=== PATIENT | male | born 1950 | race Hispanic/Latino ===

== ENCOUNTER → 2018-04-08 | Outpatient (CLI) | payer OTHER | END | disposition home or self-care (01) | LOC: SHCH 07:53 | PROVIDERS: ATTEND Internal Medicine Cardiovascular Disease | DX: I71.4 Abdominal aortic aneurysm, without rupture (principal) | CPT/HCPCS: 93978 ==

== ENCOUNTER → 2021-04-22 | Outpatient (CLI) | payer OTHER ==
[~2021-04-22] MED LIST: IOHEXOL 350 MG/ML 100ML INFUS..BTL IV ONE
== END | disposition home or self-care (01) ==
LOC: OIH 09:36
PROVIDERS: ATTEND Internal Medicine Cardiovascular Disease
DX: I71.4 Abdominal aortic aneurysm, without rupture (principal); Z86.79 Personal history of other diseases of the circulatory system; Z95.5 Presence of coronary angioplasty implant and graft
CPT/HCPCS: 74174; Q9967

== ENCOUNTER → 2021-05-05 | Outpatient (CLI) | payer OTHER | END | disposition home or self-care (01) | LOC: SHCH 15:52 | PROVIDERS: ATTEND Internal Medicine Cardiovascular Disease | DX: I34.0 Nonrheumatic mitral (valve) insufficiency (principal); I10 Essential (primary) hypertension; E78.5 Hyperlipidemia, unspecified; E11.9 Type 2 diabetes mellitus without complications; R55 Syncope and collapse | CPT/HCPCS: 93306; 93356 ==

== ENCOUNTER 2021-10-08 09:00 | Inpatient (IN) | payer OTHER ==
[~2021-10-08] VITALS: Ht 172.7 cm; Wt 85.7 kg
[2021-10-08 10:13] LABS: BASOPHILS % (AUTO) 0.6 % (0.0-5.0); EOSINOPHILS % (AUTO) 3.6 % (0.0-8.0); HEMATOCRIT 44.3 % (42-54); LYMPHOCYTES % (AUTO) 28.8 % (21.0-51.0); MEAN CORPUSCULAR HEMOGLOBIN 28.4 pg (27.0-33.0); MEAN CORPUSCULAR HGB CONC 31.6 g/dL (32.0-36.0); MEAN CORPUSCULAR VOLUME 89.9 fL (79-99); MONOCYTES % (AUTO) 12.2 % (3.0-13.0); NEUTROPHILS % (AUTO) 54.6 % (40.0-77.0); PLATELET COUNT (AUTO) 203 K/uL (130-400); RED BLOOD CELL COUNT(AUTO) 4.93 MIL/uL (4.50-6.20); RED CELL DISTRIBUTION WIDTH 14.6 % (11.0-15.5); WHITE BLOOD COUNT (AUTO) 5.3 K/uL (4.8-10.8)
[2021-10-08 10:15] LABS: APPEARANCE,URINE Clear (CLEAR); BILIRUBIN,URINE Negative (NEGATIVE); COLOR,URINE Yellow (YELLOW); GLUCOSE, URINE (UA) Negative (NEGATIVE); KETONES,URINE Negative (NEGATIVE); LEUKOCYTE ESTERASE ,URINE Trace (NEGATIVE); NITRATE,URINE Negative (NEGATIVE); OCCULT BLOOD,URINE Negative (NEGATIVE); PH,URINE 6.5 (5.0-8.0); PROTEIN,URINE Negative (NEGATIVE)
[2021-10-08 10:21] LABS: BACTERIA,URINE Rare /HPF (None Seen); RBC,URINE 0-1 /HPF (0-1); SQUAMOUS EPITHELIAL CELL,UR Rare /HPF (0-2); WBC,URINE 0-1 /HPF (0-1)
[2021-10-08 10:26] LABS: CREATININE 0.6 mg/dL (0.5-1.5); POTASSIUM 4.1 mmol/L (3.5-5.1)
[2021-10-08 10:38] LABS: INR 1.06 (0.85-1.15); PROTHROMBIN TIME 11.5 SEC (9.6-11.6)
[2021-10-08 10:40] LABS: PARTIAL THROMBOPLASTIN TIME 25.4 SEC (26.3-35.5)
[2021-10-08] MEDS ORDERED: 0.9%NACL 1000ML 1,000 ML IV SCH (17:30)
[2021-10-09 10:58] VITALS: BP 135/70
[2021-10-09] MEDS ORDERED: GUAI400T94 PO (11:55)
[2021-10-09] MEDS ORDERED: FLUT16H NASAL (11:55)
[2021-10-09] MEDS ORDERED: CETI10TA57 PO (11:55)
[2021-10-09] MEDS ORDERED: LATA7.5D OU (11:55)
[2021-10-09] MEDS ORDERED: TIOT4MIS5 IH (11:55)
[2021-10-09] MEDS ORDERED: FLUT1BLS8 IH (11:55)
[2021-10-09] MEDS ORDERED: METF-446 PO (11:55)
[2021-10-09] MEDS ORDERED: DOCU100T PO (11:55)
[2021-10-09] MEDS ORDERED: BRIM10DR16 OU (11:55)
[2021-10-09] MEDS ORDERED: ROSU20TA31 PO (11:55)
[2021-10-10] VITALS (35 sets, daily range): BP systolic 119–161; BP diastolic 51–77
[2021-10-10] MEDS ORDERED: NITROGLYCERIN 50MG VIAL IV ONE (06:50)
[2021-10-10] MEDS ORDERED: HEPARIN 10,000 UNIT/10ML (1,000 UNIT/ML) VIAL ONE (06:50)
[2021-10-10] MEDS ORDERED: SODIUM BICARB 50MEQ 50ML VIAL 0 ML ONE (06:50)
[2021-10-10] MEDS ORDERED: IOHEXOL 350 MG/ML 100ML INFUS..BTL IV ONE (06:51)
[2021-10-10] MEDS ORDERED: LIDOCAINE HCL 400MG/20ML VIAL ONE (06:51)
[2021-10-10] MEDS ORDERED: PROPOFOL 10 MG/ML 20ML VIAL IV ONE (06:55)
[2021-10-10] MEDS ORDERED: MIDAZOLAM HCL 1 MG/ML 2ML VIAL ONE (06:55)
[2021-10-10] MEDS ORDERED: LIDOCAINE HCL MPF 1% 5ML VIAL ONE (06:55)
[2021-10-10] MEDS ORDERED: ROCURONIUM 10MG/1ML SYR 10 MG/ML ML ONE (07:11)
[2021-10-10] MEDS ORDERED: CEFAZOLIN SODIUM 1 GM VIAL ONE (07:11)
[2021-10-10] MEDS ORDERED: NOREPINEPHRINE BITARTRATE 1 MG/1 ML ML IV ONE (07:28)
[2021-10-10] MEDS ORDERED: GLYCOPYRROLATE 0.2 MG/ML 5 ML VIAL ONE (08:04)
[2021-10-10] MEDS ORDERED: ROCURONIUM BROMIDE 10MG/1ML 5ML VL ONE (08:25)
[2021-10-10] MEDS ORDERED: FENTANYL CITRATE PF 50 MCG/1 ML 2ML VIAL ONE (09:44)
[2021-10-10] MEDS ORDERED: NEOSTIGMINE 5MG/5ML SYR IV ONE (10:49)
[2021-10-10] MEDS ORDERED: ONDANSETRON 4MG INJ ONE (10:53)
[2021-10-10] MEDS ORDERED: MORPHINE 4 MG SYG IV PRN (11:00)
[2021-10-10] MEDS ORDERED: 0.9%NACL 1000ML 1,000 ML IV SCH (11:00)
[2021-10-10] MEDS ORDERED: PHARMACY COMMUNICATION MISC SCH (11:00)
[2021-10-10] MEDS ORDERED: DEXTROSE 50%-WATER 50 ML DISP.SYRIN IV PRN (11:00)
[2021-10-10] MEDS ORDERED: LABETALOL 20MG VIAL IV ONE (11:13)
[2021-10-10] MEDS ORDERED: FLUTICASONE PROPIONATE 50MCG/SPRAY 16 GM BOTTLE EN SCH (11:23)
[2021-10-10] MEDS: DORZOLAMIDE 2% OU SCH (11:24)
[2021-10-10] MEDS: INSULIN HUMULIN R 100 UNIT/ML 3ML SQ SCH ×3 (11:30→21:00)
[2021-10-10] MEDS ORDERED: MORPHINE 2 MG SYG ONE (11:50)
[2021-10-10] MEDS ORDERED: NOREPINEPHRIN 4MG/NS 250ML 250 ML IV PRN (12:00)
[2021-10-10] MEDS ORDERED: NITROGLYCERIN 50MG/D5W 250ML 1 BOT IV PRN (12:00)
[2021-10-10] MEDS ORDERED: ONDANSETRON 4MG INJ IVP PRN (12:30)
[2021-10-10] MEDS: GUAIFENESIN SUGAR-FREE 100 MG/5 ML UDCUP PO SCH ×2 (13:35→21:41)
[2021-10-10] MEDS: CEFAZOLIN SODIUM 1 GM VIAL IVP SCH (16:22)
[2021-10-10] MEDS: DOCUSATE SODIUM 100 MG CAP PO SCH (21:41)
[2021-10-10] MEDS: FLUTICASONE PROPIONATE 50MCG/SPRAY 16 GM BOTTLE EN SCH (22:31)
[2021-10-10] MEDS: LATANOPROST 2.5 ML DROPS OU SCH (22:31)
[2021-10-11] VITALS (24 sets, daily range): BP systolic 78–145; BP diastolic 41–75
[2021-10-11] MEDS: CEFAZOLIN SODIUM 1 GM VIAL IVP SCH (00:41)
[2021-10-11 03:57] LABS: BASOPHILS % (AUTO) 0.2 % (0.0-5.0); EOSINOPHILS % (AUTO) 0.7 % (0.0-8.0); LYMPHOCYTES % (AUTO) 15.1 % (21.0-51.0); MEAN CORPUSCULAR HEMOGLOBIN 28.1 pg (27.0-33.0); MEAN CORPUSCULAR VOLUME 90.7 fL (79-99); MONOCYTES % (AUTO) 9.2 % (3.0-13.0); NEUTROPHILS % (AUTO) 74.6 % (40.0-77.0); PLATELET COUNT (AUTO) 179 K/uL (130-400); WHITE BLOOD COUNT (AUTO) 8.9 K/uL (4.8-10.8)
[2021-10-11] MEDS: ACETAMINOPHEN 325 MG TAB PO PRN ×2 (04:09→20:17)
[2021-10-11 04:15] LABS: ALBUMIN 2.8 g/dL (3.5-5.0); BILIRUBIN,TOTAL 0.5 mg/dL (0.2-1.0); CREATININE 0.6 mg/dL (0.5-1.5); TOTAL PROTEIN, SERUM 6.5 g/dL (6.0-8.3)
[2021-10-11] MEDS: INSULIN HUMULIN R 100 UNIT/ML 3ML SQ SCH ×4 (06:26→21:00)
[2021-10-11] MEDS: ATORVASTATIN 40 MG TABLET PO SCH (08:43)
[2021-10-11] MEDS: CETIRIZINE HCL 5 MG TABLET PO SCH (08:43)
[2021-10-11] MEDS: DOCUSATE SODIUM 100 MG CAP PO SCH ×2 (08:43→20:15)
[2021-10-11] MEDS: GUAIFENESIN SUGAR-FREE 100 MG/5 ML UDCUP PO SCH ×3 (08:43→20:15)
[2021-10-11] MEDS: DORZOLAMIDE 2% OU SCH (08:50)
[2021-10-11] MEDS: FLUTICASONE PROPIONATE 50MCG/SPRAY 16 GM BOTTLE EN SCH ×2 (08:50→20:14)
[2021-10-11] MEDS: TIOTROPIUM BROMIDE IH SCH ×2 (08:50→09:00)
[2021-10-11] MEDS ORDERED: ALBUTEROL 0.083% 2.5 MG/3 ML INH IH ONE (08:57)
[2021-10-11] MEDS ORDERED: ALBUTEROL 0.042% 1.25MG/3ML IH PRN (09:00)
[2021-10-11] MEDS ORDERED: ALBUTEROL 0.083% 2.5 MG/3 ML INH IH PRN (11:00)
[2021-10-11] MEDS ORDERED: METOPROLOL TARTRATE 1 MG/ML 5ML VIAL IV ONE ×3 (12:43→14:00)
[2021-10-11] MEDS ORDERED: IPRATROPIUM 0.5 MG/2.5 ML INH IH ONE (12:47)
[2021-10-11] MEDS ORDERED: PHARMACY COMMUNICATION MISC SCH (13:00)
[2021-10-11 14:20] LABS: MAGNESIUM 1.9 mg/dL (1.80-2.40); POTASSIUM 4.2 mmol/L (3.5-5.1); THYROID STIMULATING HORMONE 0.11 uIU/mL (0.36-3.74)
[2021-10-11] MEDS: METOPROLOL TARTRATE 25 MG TAB PO SCH ×2 (14:30→20:31)
[2021-10-11] MEDS: IPRATROPIUM 0.5 MG/2.5 ML INH IH PRN (18:03)
[2021-10-11] MEDS: [UNRECOGNIZED DRUG - OTHER] IH SCH (20:14)
[2021-10-11] MEDS: FLUTICASONE IH SCH (20:14)
[2021-10-11] MEDS: SALMETEROL IH SCH (20:14)
[2021-10-11] MEDS: LATANOPROST 2.5 ML DROPS OU SCH (20:21)
[2021-10-12 00:26] VITALS: BP 106/54
[2021-10-12] MEDS: INSULIN HUMULIN R 100 UNIT/ML 3ML SQ SCH ×4 (06:42→20:26)
[2021-10-12 06:56] LABS: BASOPHILS % (AUTO) 0.1 % (0.0-5.0); EOSINOPHILS % (AUTO) 1.6 % (0.0-8.0); HEMATOCRIT 38.5 % (42-54); LYMPHOCYTES % (AUTO) 16.1 % (21.0-51.0); MEAN CORPUSCULAR HEMOGLOBIN 28.3 pg (27.0-33.0); MEAN CORPUSCULAR HGB CONC 30.9 g/dL (32.0-36.0); MEAN CORPUSCULAR VOLUME 91.7 fL (79-99); NEUTROPHILS % (AUTO) 71.9 % (40.0-77.0); PLATELET COUNT (AUTO) 153 K/uL (130-400); RED CELL DISTRIBUTION WIDTH 14.9 % (11.0-15.5); WHITE BLOOD COUNT (AUTO) 7.9 K/uL (4.8-10.8)
[2021-10-12] MEDS: IPRATROPIUM 0.5 MG/2.5 ML INH IH PRN (07:05)
[2021-10-12 07:30] LABS: ALBUMIN 2.8 g/dL (3.5-5.0); BILIRUBIN,TOTAL 0.7 mg/dL (0.2-1.0); CREATININE 0.6 mg/dL (0.5-1.5); MAGNESIUM 1.8 mg/dL (1.80-2.40); POTASSIUM 3.9 mmol/L (3.5-5.1); TOTAL PROTEIN, SERUM 6.7 g/dL (6.0-8.3)
[2021-10-12 08:18] VITALS: BP 122/61
[2021-10-12] MEDS ORDERED: PHARMACY COMMUNICATION MISC SCH (09:00)
[2021-10-12] MEDS: GUAIFENESIN SUGAR-FREE 100 MG/5 ML UDCUP PO SCH ×3 (10:23→20:13)
[2021-10-12] MEDS: DOCUSATE SODIUM 100 MG CAP PO SCH ×2 (10:23→20:10)
[2021-10-12] MEDS: CETIRIZINE HCL 5 MG TABLET PO SCH (10:23)
[2021-10-12] MEDS: METOPROLOL TARTRATE 25 MG TAB PO SCH ×2 (10:24→20:10)
[2021-10-12] MEDS: ATORVASTATIN 40 MG TABLET PO SCH (10:24)
[2021-10-12] MEDS: BRIMONIDINE 0.15% OU SCH (10:25)
[2021-10-12] MEDS: DORZOLAMIDE 2% OU SCH (10:25)
[2021-10-12] MEDS: SALMETEROL IH SCH ×2 (10:26→20:12)
[2021-10-12] MEDS: TIOTROPIUM BROMIDE IH SCH (10:26)
[2021-10-12] MEDS: [UNRECOGNIZED DRUG - OTHER] IH SCH ×2 (10:26→20:12)
[2021-10-12] MEDS: FLUTICASONE IH SCH ×2 (10:26→20:12)
[2021-10-12] MEDS: FLUTICASONE PROPIONATE 50MCG/SPRAY 16 GM BOTTLE EN SCH ×2 (10:27→20:14)
[2021-10-12 12:50] VITALS: BP 123/59
[2021-10-12] MEDS ORDERED: PANT20TA PO (14:38)
[2021-10-12] MEDS ORDERED: METO-391 PO (14:38)
[2021-10-12] MEDS ORDERED: APIX5TAB PO (14:38)
[2021-10-12] MEDS: APIXABAN 5 MG TABLET PO SCH ×2 (14:39→20:11)
[2021-10-12] MEDS ORDERED: FUROSEMIDE 20MG VIAL IV ONE (15:00)
[2021-10-12] MEDS: IPRATROPIUM 0.5 MG/2.5 ML INH IH SCH ×3 (15:03→23:12)
[2021-10-12] MEDS ORDERED: CEFTRIAXONE 2GM VIAL IVP SCH (15:30)
[2021-10-12 16:47] VITALS: BP 116/59
[2021-10-12] MEDS: MORPHINE 2 MG SYG IVP PRN (17:35)
[2021-10-12 19:37] VITALS: BP 110/58
[2021-10-12] MEDS: DOXYCYCLINE HYCLATE 100 MG TABLET PO SCH (20:11)
[2021-10-12] MEDS: LATANOPROST 2.5 ML DROPS OU SCH (20:13)
[2021-10-13 00:26] VITALS: BP 106/54
[2021-10-13] MEDS: MORPHINE 5 MG/ML VIAL (5MG OR GREATER DOSE) IV PRN ×2 (02:56→11:16)
[2021-10-13 04:25] VITALS: BP_SYST 109; BP_SYST 110; BP_DIAS 57; BP_DIAS 62
[2021-10-13 06:10] LABS: BASOPHILS % (AUTO) 0.4 % (0.0-5.0); EOSINOPHILS % (AUTO) 3.2 % (0.0-8.0); HEMATOCRIT 37.3 % (42-54); LYMPHOCYTES % (AUTO) 18.9 % (21.0-51.0); MEAN CORPUSCULAR HEMOGLOBIN 28.3 pg (27.0-33.0); MEAN CORPUSCULAR HGB CONC 30.3 g/dL (32.0-36.0); MEAN CORPUSCULAR VOLUME 93.3 fL (79-99); MONOCYTES % (AUTO) 11.6 % (3.0-13.0); NEUTROPHILS % (AUTO) 65.6 % (40.0-77.0); PLATELET COUNT (AUTO) 155 K/uL (130-400); RED CELL DISTRIBUTION WIDTH 14.7 % (11.0-15.5); WHITE BLOOD COUNT (AUTO) 7.4 K/uL (4.8-10.8)
[2021-10-13] MEDS: IPRATROPIUM 0.5 MG/2.5 ML INH IH SCH ×4 (06:20→23:36)
[2021-10-13] MEDS: INSULIN HUMULIN R 100 UNIT/ML 3ML SQ SCH ×4 (06:21→22:30)
[2021-10-13 06:26] LABS: ALBUMIN 2.7 g/dL (3.5-5.0); BILIRUBIN,TOTAL 0.6 mg/dL (0.2-1.0); CREATININE 0.7 mg/dL (0.5-1.5); MAGNESIUM 1.8 mg/dL (1.80-2.40); POTASSIUM 4.2 mmol/L (3.5-5.1); TOTAL PROTEIN, SERUM 6.7 g/dL (6.0-8.3)
[2021-10-13 07:00] VITALS: BP 94/55
[2021-10-13 07:12] LABS: HEMOGLOBIN A1C 7.1 % (4.0-6.0)
[2021-10-13] MEDS: METOPROLOL TARTRATE 25 MG TAB PO SCH ×2 (09:00→20:44)
[2021-10-13] MEDS: CETIRIZINE HCL 5 MG TABLET PO SCH (09:05)
[2021-10-13] MEDS: APIXABAN 5 MG TABLET PO SCH ×2 (09:05→20:44)
[2021-10-13] MEDS: GUAIFENESIN SUGAR-FREE 100 MG/5 ML UDCUP PO SCH ×3 (09:05→20:43)
[2021-10-13] MEDS: DOCUSATE SODIUM 100 MG CAP PO SCH ×2 (09:05→20:43)
[2021-10-13] MEDS: DOXYCYCLINE HYCLATE 100 MG TABLET PO SCH ×2 (09:06→20:44)
[2021-10-13] MEDS: ATORVASTATIN 40 MG TABLET PO SCH (09:06)
[2021-10-13] MEDS: FLUTICASONE PROPIONATE 50MCG/SPRAY 16 GM BOTTLE EN SCH ×2 (09:07→22:25)
[2021-10-13] MEDS: [UNRECOGNIZED DRUG - OTHER] IH SCH ×2 (09:07→22:25)
[2021-10-13] MEDS: SALMETEROL IH SCH ×2 (09:07→22:25)
[2021-10-13] MEDS: FLUTICASONE IH SCH ×2 (09:07→22:25)
[2021-10-13] MEDS: DORZOLAMIDE 2% OU SCH (09:08)
[2021-10-13] MEDS: BRIMONIDINE 0.15% OU SCH (09:08)
[2021-10-13] MEDS ORDERED: METOPROLOL TARTRATE 25 MG TAB PO SCH (09:20)
[2021-10-13] MEDS ORDERED: DOXY100C5 PO (11:06)
[2021-10-13] MEDS ORDERED: AMIODARONE 900MG VIAL 360 MG in DEXTROSE 5%-WATER 200 ML IV SCH (12:30)
[2021-10-13] MEDS ORDERED: AMIODARONE 150MG VIAL 150 MG in DEXTROSE 5%-WATER 100 ML IV SCH (12:30)
[2021-10-13] MEDS ORDERED: AMIODARONE 900MG VIAL 540 MG in DEXTROSE 5%-WATER 300 ML IV SCH (12:30)
[2021-10-13] MEDS ORDERED: AMIODARONE 200 MG TABLET PO SCH (12:40)
[2021-10-13] MEDS ORDERED: MAGNESIUM SULFATE IV SCH (13:00)
[2021-10-13] MEDS ORDERED: PHARMACY COMMUNICATION MISC SCH (13:00)
[2021-10-13] MEDS ORDERED: [UNRECOGNIZED DRUG - OTHER] IV SCH (13:00)
[2021-10-13 16:00] VITALS: BP 110/47
[2021-10-13] MEDS: MORPHINE 2 MG SYG IVP PRN (17:41)
[2021-10-13 20:00] VITALS: BP 138/63
[2021-10-13] MEDS: LATANOPROST 2.5 ML DROPS OU SCH (22:26)
[2021-10-13 23:59] VITALS: BP 130/64
[2021-10-14] MEDS: MORPHINE 2 MG SYG IVP PRN ×2 (00:33→08:54)
[2021-10-14 04:25] VITALS: BP 97/57
[2021-10-14] MEDS: INSULIN HUMULIN R 100 UNIT/ML 3ML SQ SCH ×3 (05:51→16:13)
[2021-10-14] MEDS: IPRATROPIUM 0.5 MG/2.5 ML INH IH SCH ×2 (06:55→12:46)
[2021-10-14 07:00] VITALS: BP 114/64
[2021-10-14 07:44] LABS: CREATININE 0.6 mg/dL (0.5-1.5); MAGNESIUM 1.7 mg/dL (1.80-2.40); POTASSIUM 3.8 mmol/L (3.5-5.1)
[2021-10-14 07:55] LABS: BASOPHILS % (AUTO) 0.4 % (0.0-5.0); EOSINOPHILS % (AUTO) 3.2 % (0.0-8.0); HEMATOCRIT 38.3 % (42-54); LYMPHOCYTES % (AUTO) 18.1 % (21.0-51.0); MEAN CORPUSCULAR HEMOGLOBIN 28.8 pg (27.0-33.0); MEAN CORPUSCULAR HGB CONC 31.6 g/dL (32.0-36.0); MEAN CORPUSCULAR VOLUME 91.2 fL (79-99); PLATELET COUNT (AUTO) 177 K/uL (130-400); RED CELL DISTRIBUTION WIDTH 14.6 % (11.0-15.5); WHITE BLOOD COUNT (AUTO) 7.8 K/uL (4.8-10.8)
[2021-10-14] MEDS: DOXYCYCLINE HYCLATE 100 MG TABLET PO SCH (08:38)
[2021-10-14] MEDS: DOCUSATE SODIUM 100 MG CAP PO SCH (08:38)
[2021-10-14] MEDS: APIXABAN 5 MG TABLET PO SCH (08:38)
[2021-10-14] MEDS: ATORVASTATIN 40 MG TABLET PO SCH (08:39)
[2021-10-14] MEDS: METOPROLOL TARTRATE 25 MG TAB PO SCH (08:39)
[2021-10-14] MEDS: DORZOLAMIDE 2% OU SCH (08:41)
[2021-10-14] MEDS: BRIMONIDINE 0.15% OU SCH (08:41)
[2021-10-14] MEDS: FLUTICASONE IH SCH (08:42)
[2021-10-14] MEDS: [UNRECOGNIZED DRUG - OTHER] IH SCH (08:42)
[2021-10-14] MEDS: SALMETEROL IH SCH (08:42)
[2021-10-14] MEDS: FLUTICASONE PROPIONATE 50MCG/SPRAY 16 GM BOTTLE EN SCH (08:43)
[2021-10-14] MEDS: CETIRIZINE HCL 5 MG TABLET PO SCH (08:49)
[2021-10-14] MEDS: GUAIFENESIN SUGAR-FREE 100 MG/5 ML UDCUP PO SCH ×2 (08:49→15:03)
[2021-10-14] MEDS ORDERED: MAGNESIUM 2GM PREMIX 50ML 50 ML IV SCH (09:00)
[2021-10-14] MEDS ORDERED: KCL 20 MEQ ERTAB PO SCH (09:30)
[2021-10-14 11:00] VITALS: BP 114/54
[2021-10-14 16:00] VITALS: BP 112/61
[2021-10-14] MEDS ORDERED: ACETAMINOPHEN 325 MG TAB PO ONE (18:00)
[2021-10-15] MEDS ORDERED: AMIODARONE 200 MG TABLET PO SCH (09:00)
== END 2021-10-14 16:53 | disposition home or self-care (01) | DRG 268 ==
LOC: EDSTATUS 09:00 → DAHIP 10-10 05:40 → 2CH 10-10 12:00 → 2DH 10-11 19:00
PROVIDERS: ADMIT Internal Medicine; ATTEND Internal Medicine
PROC: 04V03DZ Restriction of Abdominal Aorta with Intraluminal Device, Percutaneous Approach (ICD-10-PCS; principal; 2021-10-10)
PROC: 04VE3DZ Restriction of Right Internal Iliac Artery with Intraluminal Device, Percutaneous Approach (ICD-10-PCS; 2021-10-10)
PROC: B4101ZZ Fluoroscopy of Abdominal Aorta using Low Osmolar Contrast (ICD-10-PCS; 2021-10-10)
PROC: B41C1ZZ Fluoroscopy of Pelvic Arteries using Low Osmolar Contrast (ICD-10-PCS; 2021-10-10)
PROC: B4141ZZ Fluoroscopy of Superior Mesenteric Artery using Low Osmolar Contrast (ICD-10-PCS; 2021-10-10)
DX: I71.4 Abdominal aortic aneurysm, without rupture (principal); J96.21 Acute and chronic respiratory failure with hypoxia; I48.19 Other persistent atrial fibrillation; D68.59 Other primary thrombophilia; T82.310A Breakdown (mechanical) of aortic (bifurcation) graft (replacement), initial encounter; E11.51 Type 2 diabetes mellitus with diabetic peripheral angiopathy without gangrene; E78.5 Hyperlipidemia, unspecified; G47.33 Obstructive sleep apnea (adult) (pediatric); I10 Essential (primary) hypertension; I27.20 Pulmonary hypertension, unspecified; I72.3 Aneurysm of iliac artery; J43.9 Emphysema, unspecified; Z20.822 Contact with and (suspected) exposure to COVID-19; M19.90 Unspecified osteoarthritis, unspecified site; K21.9 Gastro-esophageal reflux disease without esophagitis; E07.81 Sick-euthyroid syndrome; Y71.2 Prosthetic and other implants, materials and accessory cardiovascular devices associated with adverse incidents; Y83.2 Surgical operation with anastomosis, bypass or graft as the cause of abnormal reaction of the patient, or of later complication, without mention of misadventure at the time of the procedure; Y92.89 Other specified places as the place of occurrence of the external cause; Z99.81 Dependence on supplemental oxygen; Z95.5 Presence of coronary angioplasty implant and graft; Z95.820 Peripheral vascular angioplasty status with implants and grafts; Z79.899 Other long term (current) drug therapy; Z88.5 Allergy status to narcotic agent
CPT/HCPCS: 34710; 34712; 34713; 36245; 36415; 37221; 37242; 71045; 73600; 73620; 75710; 75726; 80048; 80053; 81001; 82948; 83036; 83735; 83880; 84132; 84439; 84443; 84445; 84481; 84482; 85025; 85347; 85610; 85730; 86376; 86850; 86900; 86901; 86923; 87635; 93005; 93925; 93970; 94640; 94664; A4344; A4606; C1725; C1760; C1769; C1874; C1887; C1893; C1894; G0378; J0282; J0690; J0696; J1644; J1815; J1940; J2250; J2270; J2405; J2704; J2710; J3010; J3475; J3490; J7030; J7060; Q9967

== ENCOUNTER → 2021-12-10 | Outpatient (CLI) | payer OTHER ==
[~2021-12-10] MED LIST changes: +APIX5TAB PO; +BRIM10DR16 OU; +CETI10TA57 PO; +DOCU100T PO; +DOXY100C5 PO; +FLUT16H NASAL; +FLUT1BLS8 IH; +GUAI400T94 PO; +LATA7.5D OU; +METF-446 PO; +METO-391 PO; +PANT20TA PO; +ROSU20TA31 PO; +TIOT4MIS5 IH
== END | disposition home or self-care (01) ==
LOC: RAH 09:28
PROVIDERS: ATTEND Internal Medicine Cardiovascular Disease
DX: I71.4 Abdominal aortic aneurysm, without rupture (principal); I70.8 Atherosclerosis of other arteries; M47.815 Spondylosis without myelopathy or radiculopathy, thoracolumbar region; R91.8 Other nonspecific abnormal finding of lung field; Z95.828 Presence of other vascular implants and grafts
CPT/HCPCS: 74174; Q9967

== ENCOUNTER → 2022-08-11 | Outpatient (CLI) | payer OTHER ==
[~2022-08-11] MED LIST changes: -IOHEXOL 350 MG/ML 100ML INFUS..BTL IV ONE
== END | disposition home or self-care (01) ==
LOC: SHCH 07:57
PROVIDERS: ATTEND Internal Medicine Cardiovascular Disease
DX: I71.21 Aneurysm of the ascending aorta, without rupture (principal)
CPT/HCPCS: 93978

== ENCOUNTER → 2022-12-10 | Outpatient (CLI) | payer OTHER ==
[~2022-12-10] MED LIST changes: +IOHEXOL 350 MG/ML 100ML INFUS..BTL IV ONE
== END | disposition home or self-care (01) ==
LOC: RAH 07:52
PROVIDERS: ATTEND Internal Medicine Cardiovascular Disease
DX: I71.40 Abdominal aortic aneurysm, without rupture, unspecified (principal)
CPT/HCPCS: 74174; Q9967

== ENCOUNTER → 2023-06-10 | Outpatient (CLI) | payer OTHER ==
[~2023-06-10] MED LIST changes: -IOHEXOL 350 MG/ML 100ML INFUS..BTL IV ONE; -ROSU20TA31 PO; +ROSU20TA73 PO
== END | disposition home or self-care (01) ==
LOC: SHCH 07:52
PROVIDERS: ATTEND Internal Medicine Cardiovascular Disease
DX: I71.40 Abdominal aortic aneurysm, without rupture, unspecified (principal)
CPT/HCPCS: 93978

== ENCOUNTER → 2024-06-12 | Outpatient (CLI) | payer OTHER ==
[~2024-06-12] MED LIST changes: -APIX5TAB PO; -CETI10TA57 PO; -DOCU100T PO; +DORZ10DR19 OU; -DOXY100C5 PO; -FLUT1BLS8 IH; +FURO20TA4 PO; +IPRA3AMP24 IH; +LEVO750T68 PO; +MOME13HF7 IH; -PANT20TA PO; +PRED20B PO; +TIOT4MIS3 IH; -TIOT4MIS5 IH
== END | disposition home or self-care (01) ==
LOC: SHCH 07:34
PROVIDERS: ATTEND Internal Medicine Cardiovascular Disease
DX: I71.40 Abdominal aortic aneurysm, without rupture, unspecified (principal)
CPT/HCPCS: 93978

== ENCOUNTER → 2024-08-01 | Outpatient (CLI) | payer OTHER | END | disposition home or self-care (01) | LOC: SHCH 08:45 | PROVIDERS: ATTEND Internal Medicine Cardiovascular Disease | DX: I71.40 Abdominal aortic aneurysm, without rupture, unspecified (principal) | CPT/HCPCS: 93306; 93978 ==